=== PATIENT | female | born 1960 | race Caucasian/White ===

== ENCOUNTER → 2022-03-15 09:08 | Outpatient (CLI) | payer OTHER, SELFPAY ==
[2022-03-15 10:55] LABS: COVID19 -Nasal RAPID Negative (Negative)
== END ==
PROVIDERS: PCP Student in an Organized Health Care Education/Training Program; Visit Provider Surgery
DX: Z20.822 Contact with and (suspected) exposure to COVID-19 (principal); Z01.812 Encounter for preprocedural laboratory examination
CPT/HCPCS: 87635; C9803

== ENCOUNTER 2022-03-18 06:25 | Day surgery (SDC) | payer OTHER, SELFPAY ==
[2022-03-18 07:15] VITALS: BP 115/72; PULSE 77; RESP 16; TEMP 37.1; O2SAT 96; BMI 23.5
[2022-03-18] MEDS: SODIUM CHLORIDE 0.9% 1,000 ML 150 ML IV (07:37)
--- NOTE | 2022-03-18 07:59 | PM.HP.1 ---
History of Present Illness History of Present Illness Date Patient Seen: 03/18/22 Time Patient Seen: 08:00 Chief complaint: DX COLONOSCOPY Narrative: Here for colon cancer screening. She had a recent positive Cologuard. Patient History Medical History Breast cancer (~2016) Carpal tunnel syndrome (~2014) Chicken pox (~1974) Ovarian cyst (~1989) Positive PPD (~1992) Shoulder pain Surgical History Anesthesia History of carpal tunnel release (~2014) History of hysterectomy (~08/2019) History of mastectomy (~05/2017) Ovarian cyst (~1989) Family & Social History Family History Father Hypertension Hyperlipidemia Mother Hypertension Hyperlipidemia Sister Breast cancer Grandfather Stroke Grandmother No problems noted. Social History: household members spouse Tobacco & Substance use: Smoking Status Never smoker alcohol intake frequency a few times a month Substance Use Type does not use Meds Home Medications and Allergies Home Medications Medication Instructions Recorded Confirmed Type exemestane 25 mg tablet 25 tab PO DAILY 03/15/22 03/18/22 History hydrochlorothiazide 25 mg tablet 25 tab PO DAILY 03/15/22 03/18/22 History levothyroxine 125 mcg tablet 1 tab PO DAILY 03/15/22 03/18/22 History (Synthroid) lisinopril 10 mg tablet 10 tab PO BID 03/15/22 03/18/22 History Allergies Allergy/AdvReac Type Severity Reaction Status Date / Time No Known Drug Allergies Allergy Unverified 10/12/21 14:10 Review of Systems Review of Systems ROS: Yes All systems reviewed with the patient and are negative except as otherwise documented Exam Vital Signs (past 8 hours): - 03/18/22 07:15 Temperature 98.7 F Pulse Rate 77 Respiratory Rate 16 Blood Pressure 115/72 Pulse Oximetry 96 Oxygen Delivery Method Room Air Oxygen Delivery Method Room Air Const General: cooperative HENMT Head: normal to inspection Eyes General: appearance normal, both eyes and all related structures Neck Neck: normal visual inspection Chest Chest: normal inspection of the chest Resp Effort & Inspection: normal respiratory effort Cardio Rate: regular rate GI Inspection: normal to inspection Skin General: no rashes or lesions noted Neuro General: patient alert and patient awake Extrem General: normal to inspection Psych Appearance: grossly normal Assessment & Plan Assessment & Plan narrative: 61-year-old female here for colon cancer screening in the context of a positive Cologuard. Colonoscopy is planned for today. Time Spent With Patient Critical Care time: I spent a total of [] minutes of critical care time on this patient's care today; this time is exclusive of procedural time.
--- NOTE | 2022-03-18 08:02 | PM.PREOP ---
Pre-operative Note COVID-19 COVID-19 status: Negative Result date/Date tested (Pos, Neg/Pending): 03/15/22 Criteria for continued procedure: Possibility delay results in more complex future surgery or treatment Interval Note History & Physical reviewed/Exam performed by Physician: Yes Changes to H&P: No ASA Class (for procedural sedation): II
--- NOTE | 2022-03-18 08:37 | PM.OP.COLON ---
Operative Date/Time/Diagnoses Date of procedure: 03/18/22 Time of procedure: 08:37 Pre-op diagnosis: Positive Cologuard Post-op diagnosis: same Procedure & Clinicians Study performed: Colonoscopy Same procedure as scheduled: Yes Indications: Positive Cologuard Surgeon: Suresh Jimenez Procedure Notes SCOAP/Timeout: Done Procedure in detail: After the risks and benefits were explained, written and verbal informed consent was obtained. The patient was brought into the procedure room and placed into the left lateral decubitus position. Conscious sedation medication was applied as per nursing documentation. Digital rectal examination was accomplished. The scope was introduced into the patient and advanced under direct visualization to the cecum as identified by the appendiceal orifice and ileocecal valve. The scope was slowly withdrawn to carefully examine the mucosa for any defects or lesions. Comprehensive imaging was accomplished throughout the rectum including the dentate line. The colon was decompressed, the scope was then removed from the patient who tolerated the procedure well. Pediatric colonoscope Bowel prep adequate Scope withdrawal time: 14 minutes Sedation minutes: 23 Specimen(s): none sent Complications: none Impression: Mild grade 1 internal hemorrhoids were noted. At approximately 12 cm from the anal verge there was evidence of abnormality. This was characterized by seemingly submucosal mass effect. At 1st I could not determine whether this was solid mass versus a cluster of varices. There was no bleeding. We were able to navigate through this. The left colon was quite tortuous and challenging with respect to navigation. When we arrived in the right colon a similar submucosal process appeared to involve the ileocecal valve. I reached out with closed forceps to palpate the area and it felt somewhat firm under the tip of the forceps but was exceedingly friable and started to bleed with a very small scratch. I elected to not pursue biopsy at this location secondary to what seemed to be a very vascular abnormality. We turned our attention upon withdrawal to the lesion at the rectosigmoid junction. This was nearly circumferential in its appearance. This area was palpated with the tip of the forceps and also felt quite firm. I elected to consider a biopsy but the forceps would not grab a mucosal specimen. In order to retrieve a bite I would if he been forced to take a massive piece which would have almost certainly induced massive bleeding. This small attempt at a bite from this lesion induced a moderate amount of self-limited oozing. The abnormal section at rectosigmoid was perhaps 3-4 cm in length and nearly circumferential. Multiple photos were taken. Endoscopic diagnosis 1. Grade 1 hemorrhoids 2. Ileocecal valve submucosal mass effect 3. Rectosigmoid submucosal mass effect Post-procedure Plan for aftercare: 1. Review CT imaging in an effort to correlate endoscopic findings today with the most recent scans. 2. Proceed with endoscopic ultrasound examination of the rectosigmoid and targeted histology of the least vascular element that can be visualized. Disposition: PACU
[2022-03-18 08:40] VITALS: BP 91/45; PULSE 71; RESP 17; TEMP 36.5; O2SAT 100
[2022-03-18 08:44] VITALS: BP 93/40; PULSE 71; RESP 16; O2SAT 100
[2022-03-18 08:50] VITALS: BP 109/60; PULSE 70; RESP 16; TEMP 37; O2SAT 100
--- NOTE | 2022-03-18 08:54 | SUR.PHASEI ---
Stable pacu stay, dr davis spoke with pt. pt to OPD.
[2022-03-18 09:20] VITALS: BP 128/68; PULSE 74; RESP 18; TEMP 36.7; O2SAT 100
== END 2022-03-18 09:16 | disposition home or self-care (01) ==
PROVIDERS: PCP Student in an Organized Health Care Education/Training Program; Referring Provider Internal Medicine Gastroenterology; Visit Provider Internal Medicine Gastroenterology
PROC: 0DJD8ZZ Inspection of Lower Intestinal Tract, Via Natural or Artificial Opening Endoscopic (ICD-10-PCS; CPT 45378; principal; 2022-03-18 08:00)
DX: R19.5 Other fecal abnormalities (principal); K64.0 First degree hemorrhoids; K63.89 Other specified diseases of intestine
CPT/HCPCS: 45378; J2704

== ENCOUNTER → 2025-05-11 16:16 | Outpatient (CLI) | payer MEDICARE, OTHER, SELFPAY ==
--- NOTE | 2025-05-11 16:18 | DI.MRI.S_ITS ---
PROCEDURE: MR SHOULDER RT WO CON INDICATIONS: r/o RTC tear TECHNIQUE: Noncontrast oblique coronal T2 fast spin echo with fat saturation, oblique sagittal T1 spin echo and T2 fast spin echo with fat saturation, axial T1 spin echo and T2 fast spin echo with fat saturation through the shoulder. COMPARISON: None. FINDINGS: Image quality: Excellent. Rotator cuff: Full-thickness rupture involving distal supraspinatus at its insertion on the humeral head is seen with up to 3 cm medial retraction of torn tendon fibers to the level of acromioclavicular joint. Distal infraspinatus tendinosis and low-grade articular surface partial-thickness tear at its insertion on the humeral head is seen. Low-grade intrasubstance partial-thickness tear involving distal subscapularis is seen. Sagittal images demonstrate [id number] supraspinatus muscle atrophy. Bones and bursae: No bone marrow contusions or fractures. Phah-ml-nzexkejo acromioclavicular joint osteoarthritis. Type 2 acromion without os acromiale. Moderate amount of joint effusion and subacromial subdeltoid bursal fluid is seen, no loose bodies. Capsule and soft tissues: Signal abnormality and fraying involving superior anterior glenoid labrum suggestive of superior anterior labral tear. Proximal long head of biceps tendon appears thickened. IMPRESSION: 1. Full-thickness rupture involving distal supraspinatus at its insertion on humeral head with up to 3 cm medial retraction of torn tendon fibers to the level of acromioclavicular joint. Mild to moderate supraspinatus muscle atrophy. 2. Low-grade articular surface partial-thickness tear involving distal infraspinatus. 3. Low-grade intrasubstance partial-thickness tear involving distal subscapularis. 4. Jqlw-wh-fcrguptw acromioclavicular joint osteoarthritis. No fracture or dislocation. Moderate amount of joint fluid and subacromial subdeltoid bursal fluid, no loose bodies. 5. Suggestion of superior anterior glenoid labral tear. 6. Proximal long head of biceps tendinosis. Dictated by: Be Reed M.D. on 05/12/2025 at 7:58 Approved by: Be Reed M.D. on 05/12/2025 at 8:57
== END ==
PROVIDERS: Referring Provider Orthopaedic Surgery; Visit Provider Orthopaedic Surgery
DX: M25.511 Pain in right shoulder (principal); G89.29 Other chronic pain; M75.121 Complete rotator cuff tear or rupture of right shoulder, not specified as traumatic; M62.511 Muscle wasting and atrophy, not elsewhere classified, right shoulder; M19.011 Primary osteoarthritis, right shoulder
CPT/HCPCS: 73221

== ENCOUNTER 2025-08-23 09:29 | Day surgery (SDC) | payer MEDICARE, OTHER, SELFPAY ==
[2025-07-28 14:15] VITALS: BMI 25.7
[2025-08-23] VITALS (7 sets, daily range): BP systolic 139–163; BP diastolic 70–92; PULSE 63–86; RESP 15–22; TEMP 36.2–36.4; O2SAT 97–100
[2025-08-23] MEDS: GABAPENTIN 300 MG CAPSULE PO (10:06)
[2025-08-23] MEDS: LACTATED RINGERS 1,000 ML 42 ML IV (10:06)
[2025-08-23] MEDS: ACETAMINOPHEN 325 MG TABLET 975 MG PO (10:06)
--- NOTE | 2025-08-23 12:39 | PM.PREOP ---
Pre-operative Note Interval Note History & Physical reviewed/Exam performed by Physician: Yes Changes to H&P: No
--- NOTE | 2025-08-23 12:49 | PM.HP.IH.1 ---
History of Present Illness History of Present Illness Chief complaint: R biceps tenodesis and distal clavicle excision [facility] Medical History (Updated 07/28/25 @ 13:41 by Kay Oscar, RN) Port-A-Cath in place (08/2019) Shoulder pain Carpal tunnel syndrome (~2014) Positive PPD (~1992) Chicken pox (~1974) Ovarian cyst (~1989) Breast cancer (~2016) Surgical History (Updated 07/28/25 @ 14:04 by Kay Oscar RN) H/O transurethral resection of bladder tumor (TURBT) (02/15/20) Hx of craniotomy (07/2024) Anesthesia History of hysterectomy (~08/2019) History of mastectomy (~05/2017) History of carpal tunnel release (~2014) Ovarian cyst (~1989) Family History Father Hypertension Hyperlipidemia Mother Hypertension Hyperlipidemia Sister Breast cancer Grandfather Stroke Grandmother No problems noted. Social History household members: spouse Smoking Status: Never smoker Meds Home Medications and Allergies Home Medications ?Medication ?Instructions ?Recorded ?Confirmed ?Type levothyroxine 125 mcg tablet 1 tab PO DAILY 03/15/22 08/23/25 History (Synthroid) acetaminophen 500 mg tablet 1,000 mg (2 x 500 mg) PO Q8H PRN 07/07/25 08/23/25 Rx pain #120 tabs capecitabine 500 mg tablet 1,000 mg PO BID 07/07/25 08/23/25 History docusate sodium 100 mg capsule 100 mg PO BID #20 caps 07/07/25 07/07/25 Rx (Colace) hydrochlorothiazide 25 mg tablet 12.5 mg PO DAILY 07/07/25 08/23/25 History lisinopril 10 mg tablet 10 mg PO DAILY 07/07/25 08/23/25 History ondansetron 4 mg disintegrating 4 mg PO Q8H PRN nausea and 07/07/25 07/07/25 Rx tablet vomiting #14 tabs oxycodone 5 mg capsule 5 mg PO Q4H PRN pain #25 caps 07/07/25 07/07/25 Rx potassium chloride 10 mEq 10 meq PO BID 07/07/25 08/23/25 History capsule,extended release tucatinib 150 mg tablet 300 mg PO Q12H 07/07/25 08/23/25 History cholestyramine (with sugar) 4 gram 1 ea PO DAILY 07/28/25 07/28/25 History oral powder fluticasone propionate 50 spray intranasal 07/28/25 History mcg/actuation nasal spray,suspension acetaminophen 325 mg capsule 975 mg (3 x 325 mg) PO Q8H PRN 08/17/25 08/23/25 Rx pain #180 caps Allergies Allergy/AdvReac Type Severity Reaction Status Date / Time levofloxacin (From Levaquin) AdvReac Achilles Verified 07/28/25 13:48 tendinopathy. Exam Vital Signs (past 8 hours): - 08/23/25 09:53 Temperature 97.6 F Pulse Rate 71 Respiratory Rate 17 Blood Pressure 140/80 Pulse Oximetry 98 Oxygen Delivery Method Room Air Oxygen Delivery Method Room Air Assessment & Plan Assessment & Plan narrative: CC: RIGHT Shoulder Pain ? Preop Appointment for a right shoulder diagnostic arthroscopy, rotator cuff repair, open subpectoral biceps tenodesis and open distal clavicle excision.? HPI: 64yo RHD F ??With a past medical history of breast cancer presents to the orthopedic clinic for the 1st time with regards to her right shoulder pain. ?I have seen her previously several years ago [place] the [employer] [place].? She reports that she started having right shoulder pain in 2019.? There was no specific trauma it was just insidious.? She believes that she overdoes it with some exercise or working in the yard.? At that last visit she was referred to physical therapy and she found that she had some good relief with those treatments.? However she continues to have chronic mild lateral shoulder pain.? She normally does not feel any pain during the activities however she has significant soreness the following day. Treatments have included activity modification, physical therapy and home exercise program.? She has not taken any long-term anti-inflammatories and injections.? She has previously been diagnosed with metastatic breast cancer and is on various medications.? She is unclear if she can take NSAIDs. 06/23/25: ?patient returns to clinic 6 weeks after the last visit.? She has not had any changes to her right shoulder issues. ? 07/07/25:? Patient returns to clinic 2 weeks after the last visit.? She returns for a preoperative appointment.? She has talked with her oncologist who reports that he will adjust her medications to make it safe for her to proceed with the above procedure. ? EXAM: Right Shoulder Inspection: No erythema, swelling, bruising, atrophy. Palpation: No TTP at AC joint. Neg TTP over biceps tendon sheath. No TTP overlying SC joint, scapula. AROM:180FF/180ABD mild lateral shoulder pain Strength: 5/5 delt/bi/tri/we/wf/io Special tests: RTC: 5/5 SS/IS/Subscap/TM, - Empty Can, Drop Arm, Lift-off Impingement: + [place]. - CBA Biceps/SLAP: Neg Speed's. Negative Yergason, - Lincoln's however causes lateral shoulder pain Neurovascular: SILT M/U/R, + AIN/PIN/U, 2+ RAD IMAGING: Right Shoulder radiographs on May 04, 2025: ?Bamg-yb-txgoutkz osteoarthritis of the AC joint.? No fractures or dislocations. RIGHT shoulder MRI on May 11, 2025:? Full-thickness supraspinatus tear with retraction of approximately 3 cm.? Mild to moderate supraspinatus atrophy.? Low-grade partial-thickness tearing of the infraspinatus and subscapularis.? Moderate AC joint osteoarthritis.? Possible SLAP tear.? Tendinosis of the biceps tendon. ASSESSMENT: 64yo RHD F with history, physical exam ??And imaging consistent with a right soulder supraspinatus full-thickness tear, AC joint osteoarthritis and possible SLAP tear. ? I explained to her that given the retraction and atrophy I would highly recommend pursuing surgical management at this time. ?Since she is on chronic chemotherapy due to her metastatic breast cancer and will have an adjustment to her medication use by her oncologist. ? ? The risks, benefits and alternatives of the procedure were discussed with the patient to include bleeding, infection, damage to surrounding structures, ongoing pain, shoulder stiffness,? need for additional surgeries, fracture, and anesthesia risks such as heart attack, stroke and .? Patient understood these risks and want to move forward with the procedure.For surgery she would be a good candidate for a right shoulder diagnostic arthroscopy, rotator cuff repair, subacromial decompression, open subpectoral biceps tenodesis and distal clavicle excision. ? She was consented for a right shoulder diagnostic arthroscopy, rotator cuff repair, open distal clavicle excision and possible open subpectoral biceps tenodesis. ? The patient had the treatment plan explained, questions answered and seemed satisfied with the plan. There were no apparent barriers to communication. The documentation in this note may have been entered with the assistance of computer voice recognition and dictation software. Therefore, it may contain unintended errors in text, spelling, punctuation, or grammar. Mariano Fernandes MD Orthopaedic Surgeon Time-Based Coding :: [TOTAL MINUTES] spent with patient and on the chart (including review of chart, obtaining history, exam, reviewing outside data, placing orders, documenting exam and treatment plan, and counseling patient) on [DATE]. PROFEE Spring Tester Document charge(s): Yes
--- NOTE | 2025-08-23 12:58 | PM.OP.1 ---
Operative Date/Time/Diagnoses Date of procedure: 08/23/25 Time of procedure: 13:00 Pre-op diagnosis: RIGHT shoulder rotator cuff tear, AC joint osteoarthritis and possible SLAP tear Post-op diagnosis: same Procedure & Clinicians Procedure: Right shoulder rotator cuff repair, distal clavicle excision and open biceps tenodesis Same procedure(s) as scheduled: Yes Surgeon: Maraino Fernandes Assisted?: Yes Claims Adjuster Crop: Maria T Hough Anesthesia Type: General Operative Notes Findings: Full-thickness rotator cuff tear, AC joint osteoarthritis and SLAP tear Closure Type: primary Specimen(s): none sent Applied: none Estimated Blood Loss (mL): 25 Blood products transfused: none Procedure in detail: Patient Name: LA COLLIER Date of Operation: 08/23/25 Preoperative diagnosis: RIGHT Shoulder Rotator Cuff Tear, Biceps Tendinopathy and Acromioclavicular Osteoarthritis Procedure performed: Right Shoulder Diagnostic Arthroscopy, Rotator Cuff Repair, Open Biceps Tenodesis and Open Distal Clavicle Excision Postoperative diagnosis: Same Primary Surgeon: Mariano Fernandes MD Secondary Surgeon: MAISHA Aleman Physician Claims Adjuster Crop was used throughout the entirety of the case. They assisted with room set up, patient positioning, draping, retraction, reduction, fixation and closure. They were essential for the success of the case. Anesthesia: General EBL: 25 ml Implants: Arthrex knotless 2.6 fiber tacks x2 Arthrex Proximal Biceps Tenodesis Button Indication for Surgery: Nonoperative management failed to resolve symptoms. The risks, benefits, and alternatives were discussed. Risks included pain, bleeding, infection, damage to nearby structures, lack of symptom relief, implant complications, stiffness, need for further surgeries, DVT, PE, stroke, and even . They signed a written consent form. Examination Under Anesthesia: ROM: Forward flexion 170, abduction 170 Anterior load and shift: Grade Posterior load and shift: Grade Inferior sulcus: Grade Diagnostic Findings: Rotator interval: Significant synovitis Biceps tendon & SLAP: Degenerative fraying of the biceps tendon and SLAP region Subscapularis: Intact Rotator Cuff: Full-thickness supraspinatus tear retracted to the AC joint HAGL: No HAGL Labrum: Degenerative changes in the anterior portion. Inferior portion intact Glenoid Cartilage: Minimal chondromalacia Humeral Head Cartilage: Minimal chondromalacia Procedure in Detail: The patient was met in the preoperative holding on the day of the procedure. Operative extremity was signed. Consent was verified. The patient desired to proceed. Regional anesthesia was obtained in the preoperative area. They were brought to the operating room and surrendered to anesthesia. Once general anesthesia was obtained they were placed in the beach chair position. All bony prominences were well-padded. They were then prepped and draped in the standard sterile fashion. A surgical timeout was held to confirm the patient procedure, identity, laterality, allergies, images, and antibiotics. All were in agreement and we proceeded. A standard diagnostic arthroscopy was performed utilizing posterior and anterior superior portal sites. The anterior superior portal site was created under direct visualization. The findings of the diagnostic arthroscopy can be found above. We are able to identify the full-thickness rotator cuff tear from inside the joint. Biceps tendon was cut using arthroscopic scissors and debrided back with a sucker shaver. Mini-Open Subpectoral Biceps Tenodesis: We then turned our attention to the biceps tenodesis, a 4 cm longitudinal incision was made near the axillary fold centered over the inferior border of the pectoralis major tendon. Electrocautery was used to obtain hemostasis. The fascia was opened with dissection scissors in line with the course of the neurovascular structures. Blunt digital dissection was used to identify the intertubercular groove just under the pectoralis major tendon. The long head of the biceps tendon was visualized within this interval. The short head of the biceps was retracted with my finger and the right angle was used to deliver the tendon of the long head of the biceps out of the wound. The groove was then prepared with a louise elevator. The drill for the biceps button was placed at the inferior edge of the pec major tendon within the groove. The drill was then removed and the button placed. The tendon was then reduced down on to the surface of the humerus. The suture limbs were cut and the wound was irrigated. The subcutaneous tissue was closed using interrupted 2-0 Vicryl followed by running 3-0 Monocryl in subcuticular fashion. Subacromial Decompression: The obturator was placed into the subacromial space along the underside of the acromion from the posterior portal passing lateral to the coracoacromial ligament and out the anterior incision. The crystal cannula was threaded over this and the serfas wand was placed into the cannula. The camera was inserted and the cannula was backed out until the camera and instruments were in the subacromial space. The serfas wand was used to excise tissue from the underside of the acromion and establish a small space for viewing. The leading edge of the CA ligament was released. A lateral incision was made after localization with a spinal needle. The shaver was inserted and the bursa was excised completely, taking care to excise all bursa from the anterior and lateral gutters. The rotator cuff was protected throughout. The shaver was then used to jesse the underside of the acromion of all portions that were downsloping or not smooth. The shoulder was taken through a range of motion and the bursa was found to be fully excised. Rotator Cuff Repair: The rotator cuff tear was identified from the subacromial space. It was decided that this would require a a medial row only. We placed 2 2.6 fiber tacks 1 anteriorly within the old footprint. The other approximately 1.5 cm posterior. A scorpion was utilized to throw the 4 individual limbs through the rotator cuff evenly spaced out. We then pulled these through the locking mechanisms and this cinched down the rotator cuff into the old footprint. The rotator cuff repair was inspected which was found to be secure. The shoulder was taken through a range of motion which demonstrated a fully repair rotator cuff which moved continuously with the movement of the shoulder. Final images were obtained and the instruments were removed from the shoulder. Distal Clavicle Excision: We turned our attention to the open distal clavicle excision, a 5 cm incision was made in line with the clavicle, centered over the acromioclavicular joint. Electrocautery was used to obtain hemostasis. Full-thickness skin flaps were made at the level of the fascia/joint capsule. A full-thickness longitudinal was made longitudinally to open the acromioclavicular joint. Electrocautery was used to dissect the joint capsule from the bony surfaces. 2 Homans were placed around the distal clavicle. Rongeur was used to debride the intra-articular disc. An 8 mm resection was measured and performed with a sagittal saw. Care was taken to ensure this cut was parallel to the joint surface. All sharp bony edges were rounded. A finger was placed with into the defect and the arm was adducted fully without any impingement in the joint. The joint was then irrigated copiously. A watertight capsular and fascial closure was performed with 0 Vicryl. The deep dermal layer was closed with 0 Vicryl interrupted, followed by 2-0 interrupted Vicryl more superficially. The skin was closed superficially using 3-0 Nylon. The incisions were closed with 3-0 Nylon, sterile dressing and sling were applied. Postoperative Plan: Same day discharge Sling use for 6 weeks Physical Therapy consult placed Follow up with ortho in 2 weeks for suture removal and clinical examination Mariano Fernandes MD Complications: none Post-operative Condition: stable Disposition: PACU
--- NOTE | 2025-08-23 13:00 | SUR.PREOP ---
Block start time [1236] . Monitoring initiated and maintained throughout procedure. Oxygen and medications given by anesthesiologist. Nerve stimulator used on operative arm for additional safety. Patient remained stable throughout procedure, no adverse reactions noted. Block end time [1246].
--- NOTE | 2025-08-23 13:50 | SUR.OPER ---
Beach chair with [employer] shoulder positioner. Lower body on padded OR bed. Head in foam padded head cradle, secured with straps. Non-operative arm secured <90 degrees abduction. Pillow under knees. Safety belt at thigh. Cloth tape over blanket over lower legs. Surgeon approved final position prior to start of procedure.
[2025-08-23] MEDS: SODIUM CHLORIDE IRRIG SOLUTION 3,000 ML, EPINEPHrine 3 MG IRR ×3 (14:10→14:44)
[2025-08-23] MEDS: LACTATED RINGERS 1,000 ML 120 ML IV (14:54)
[2025-08-23] MEDS: BUPivacaine 0.25% (PF) 10 ML VIAL 30 ML INJ (16:08)
== END 2025-08-23 17:35 | disposition home or self-care (01) ==
PROVIDERS: Referring Provider Orthopaedic Surgery; Visit Provider Orthopaedic Surgery
PROC: (CPT 29827; principal; 2025-08-23 11:15)
DX: M75.121 Complete rotator cuff tear or rupture of right shoulder, not specified as traumatic (principal); M19.011 Primary osteoarthritis, right shoulder; S43.431A Superior glenoid labrum lesion of right shoulder, initial encounter; M67.921 Unspecified disorder of synovium and tendon, right upper arm; M65.911 Unspecified synovitis and tenosynovitis, right shoulder; G89.18 Other acute postprocedural pain; C50.919 Malignant neoplasm of unspecified site of unspecified female breast; I10 Essential (primary) hypertension; E03.9 Hypothyroidism, unspecified
CPT/HCPCS: 23430; 29827; 23120; 64450; C1713; J0165; J0689; J1100; J1885; J2250; J2405; J2704; J3010; J3490; J7120